=== PATIENT | female | born 1935 | race Native Hawaiian/Other Pacific Islander ===

== ENCOUNTER 2016-07-11 11:30 | Inpatient (IN) | payer OTHER ==
[~2016-07-11] VITALS: Ht 149.9 cm; Wt 54.6 kg
[~2016-07-11 11:30] MED LIST: AMLO10TA PO; ASA LOW STR81 MG PO; ASPIRIN325 M2 OR; CALTRATE 600+D1 TAB OR; DIOVAN HCT PO; FORTAMET500 MG PO; HYDR500C PO; META800T35; NITR100C56 PO
[2016-07-11 13:08] LABS: PLATELET COUNT 416 K/uL (152-353)
[2016-07-11 13:35] LABS: POTASSIUM 3.3 mmol/L (3.6-5.2); SODIUM 135 mmol/L (136-145)
[2016-07-11 14:40] VITALS: BP 198/72; TEMP 97.9; Ht 149.9 cm; Wt 54.6 kg
[2016-07-11] MEDS ORDERED: RIVADIS4 TOP (15:41)
[2016-07-11] MEDS ORDERED: VALSARTAN80 MG PO (15:47)
[2016-07-11] MEDS ORDERED: AMLO2.5T PO (15:47)
[2016-07-11] MEDS ORDERED: MULTIVITAMI1 PO (15:49)
[2016-07-11 16:00] VITALS: BP 182/84; TEMP 98.5
[2016-07-11 20:22] VITALS: BP 164/72; TEMP 98.2
[2016-07-12] VITALS: BP 163/64; TEMP 97.8
[2016-07-12 04:00] VITALS: BP 137/72; TEMP 98.3
[2016-07-12 05:10] LABS: PLATELET COUNT 376 K/uL (152-353)
[2016-07-12 05:28] LABS: POTASSIUM 3.1 mmol/L (3.6-5.2); SODIUM 136 mmol/L (136-145)
[2016-07-12 07:27] VITALS: BP 151/66; TEMP 98.1
[2016-07-12 12:18] VITALS: BP 147/77; TEMP 98.2
[2016-07-12 16:09] VITALS: BP 180/73; TEMP 98.2
[2016-07-12 20:24] VITALS: BP 145/17; TEMP 98.1
[2016-07-13] VITALS: BP 145/85; TEMP 97.6
[2016-07-13 04:00] VITALS: BP 167/69; TEMP 98.6
[2016-07-13 06:17] LABS: PLATELET COUNT 382 K/uL (152-353)
[2016-07-13 06:29] LABS: POTASSIUM 3.5 mmol/L (3.6-5.2); SODIUM 135 mmol/L (136-145)
[2016-07-13 08:00] VITALS: BP 145/71; TEMP 98.4
[2016-07-13 11:41] VITALS: BP 164/78; TEMP 98
[2016-07-13 15:53] VITALS: BP 143/56; TEMP 98.4
[2016-07-13 19:48] VITALS: BP 137/69; TEMP 98.7
[2016-07-14 00:26] VITALS: BP 147/62; TEMP 97.8
[2016-07-14 04:00] VITALS: BP 150/72; TEMP 97.6
[2016-07-14 05:23] LABS: PLATELET COUNT 280 K/uL (152-353)
[2016-07-14 05:40] LABS: POTASSIUM 2.8 mmol/L (3.6-5.2); SODIUM 125 mmol/L (136-145)
[2016-07-14 08:00] VITALS: BP 147/80; TEMP 97.7
[2016-07-14 12:00] VITALS: BP 140/68; TEMP 98.5
[2016-07-14 16:00] VITALS: BP 155/73; TEMP 97.8
[2016-07-14 20:13] VITALS: BP 117/59; TEMP 97.9
[2016-07-15 00:13] VITALS: BP 120/75; TEMP 98
[2016-07-15 04:00] VITALS: BP 129/77; TEMP 97.5
[2016-07-15 06:02] LABS: PLATELET COUNT 375 K/uL (152-353)
[2016-07-15 06:16] LABS: SODIUM 136 mmol/L (136-145)
[2016-07-15 07:41] VITALS: BP 132/70; TEMP 97.4
[2016-07-15 11:35] VITALS: BP 120/53; TEMP 97.6
[2016-07-15 16:21] VITALS: BP 136/53; TEMP 98.1
[2016-07-15 20:11] VITALS: BP 134/60; TEMP 98.1
[2016-07-16] VITALS: BP 133/58; TEMP 98
[2016-07-16 04:00] VITALS: BP 160/78; TEMP 98.1
[2016-07-16 05:58] LABS: PLATELET COUNT 349 K/uL (152-353)
[2016-07-16 06:41] LABS: SODIUM 133 mmol/L (136-145)
[2016-07-16 08:00] VITALS: BP 147/59; TEMP 98.1
[2016-07-16 12:00] VITALS: BP 143/65; TEMP 98.4
[2016-07-16 16:00] VITALS: BP 126/69; TEMP 98.7
[2016-07-16 20:00] VITALS: BP 143/89; TEMP 98
[2016-07-17] VITALS: BP 136/91; TEMP 98.2
[2016-07-17 04:00] VITALS: BP 120/72; TEMP 98.1
[2016-07-17 08:00] VITALS: BP 130/46; TEMP 98.1
[2016-07-17 12:00] VITALS: BP 142/66; TEMP 98.8
[2016-07-17 16:00] VITALS: BP 148/62; TEMP 98.8
[2016-07-17 21:24] VITALS: BP 167/60; TEMP 98.1
[2016-07-18 00:11] VITALS: BP 138/61; TEMP 97.9
[2016-07-18 04:00] VITALS: BP 140/78; TEMP 97.7
[2016-07-18 08:10] VITALS: BP 130/51; TEMP 97.6
[2016-07-18 12:04] VITALS: BP 161/65; TEMP 98.1
== END 2016-07-18 12:00 | disposition swing bed (61) | DRG 65 ==
LOC: MED/SURG 11:30
PROVIDERS: Emergency Medicine; Internal Medicine; ADMIT Internal Medicine
DX: I63.522 Cerebral infarction due to unspecified occlusion or stenosis of left anterior cerebral artery (principal); G81.91 Hemiplegia, unspecified affecting right dominant side; N39.0 Urinary tract infection, site not specified; E11.69 Type 2 diabetes mellitus with other specified complication; B96.1 Klebsiella pneumoniae [K. pneumoniae] as the cause of diseases classified elsewhere; D53.1 Other megaloblastic anemias, not elsewhere classified; E87.6 Hypokalemia; S70.01XA Contusion of right hip, initial encounter; W18.39XA Other fall on same level, initial encounter; Y92.098 Other place in other non-institutional residence as the place of occurrence of the external cause
CPT/HCPCS: 36415; 80048; 80053; 80061; 81000; 82550; 82553; 82607; 82746; 82948; 83036; 83735; 84443; 84484; 85027; 87077; 87086; 87088; 87186; 93005; 93306; 94760; 96365; 96366; 96367; 96372; 99283; J0744; J1644; J3490

== ENCOUNTER 2016-07-18 12:00 | Inpatient (IN) | payer OTHER ==
[~2016-07-18] VITALS: Ht 149.9 cm; Wt 56.3 kg
[~2016-07-18 12:00] MED LIST changes: +AMLO2.5T PO; +MULTIVITAMI1 PO; +RIVADIS4 TOP; +VALSARTAN80 MG PO
[2016-07-18 19:18] VITALS: BP 106/68; TEMP 97.7; Ht 149.9 cm; Wt 56.3 kg
--- NOTE | 2016-07-18 19:42 | NUR ---
07/18/16 9608 RECEIVED REPORT FROM BECKY PAGE RN.CC
[2016-07-18 20:24] VITALS: BP 135/68; TEMP 98.3
--- NOTE | 2016-07-18 22:47 | NUR ---
07/18/161999 PT REPOSTIONED AND BRIEF CHANGED PER PCT.CC
--- NOTE | 2016-07-19 01:35 | NUR ---
07/19/15 0115 A/O PT TURNED AND REPOSTIONED FOR COMFORT.BRIEF CHANGED WITH CLEAR URINE. PT TOLERATED WELL.CC
--- NOTE | 2016-07-19 04:09 | NUR ---
07/19/16 0300 RESTING QUEITLY WITH EYES CLOSED NO DISTRESS NOTED.CC
--- NOTE | 2016-07-19 05:05 | NUR ---
07/19/15 0504 RESTING QUEITLY WITH EYES CLOSED NAD NOTED.CC
--- NOTE | 2016-07-19 05:18 | NUR ---
07/19/16 LE 2200 PT TURNED AND REPOSTIONED PER PCT BRIFEF CHANGED.CC 07/19/15 0515 PT TURNED AND REPOSTIONED PER PCT BRIEF CAHNGED.CC
[2016-07-19 08:00] VITALS: BP 145/59; TEMP 98.2
[2016-07-19 20:00] VITALS: BP 130/58; TEMP 98.2
[2016-07-20 08:30] VITALS: BP 117/84; TEMP 98.4
[2016-07-20 20:16] VITALS: BP 102/55; TEMP 97.7
[2016-07-21 20:12] VITALS: BP 120/64; TEMP 97.9
[2016-07-22 08:27] VITALS: BP 183/62; TEMP 98
--- NOTE | 2016-07-22 10:47 | NUR ---
1050 PT BEING DISCHARGED AND TRANSPORTED TO [facility] IN [place] PER POV PER FAMILY.
--- NOTE | 2016-07-22 11:17 | NUR ---
1120 REPORT CALLED AND GIVEN TO J[facility]ER AT [facility]. PT WILL GO POV TO [facility] PER FAMI;Y
== END 2016-07-22 11:41 | DRG 556 ==
LOC: MED/SURG 12:00
PROVIDERS: ADMIT Internal Medicine
DX: M62.81 Muscle weakness (generalized) (principal); I69.359 Hemiplegia and hemiparesis following cerebral infarction affecting unspecified side; C94.6 Myelodysplastic disease, not elsewhere classified; I10 Essential (primary) hypertension; E11.9 Type 2 diabetes mellitus without complications; I66.19 Occlusion and stenosis of unspecified anterior cerebral artery
CPT/HCPCS: 36415; 82948; 85049